=== PATIENT | male | born 1955 | race Caucasian/White ===

== ENCOUNTER 2018-12-02 19:25 | Emergency (ER) | payer MEDICARE, MEDICAID ==
[2008-09-22 20:54] VITALS: BP 123/79
[~2018-12-02 19:25] MED LIST: 00186-0372-20 IH; ADVAIR 250/28 DISKUS IH; ALBUTEROL SULFAT3 M3 IH; ALBUTEROL0.83 MG/ML IH; AMLODIPINE10 MG PO; AQUAPHOR; AQUAPHOR1 OI1 TP; ASPIRIN 81M81 MG/TA2 PO; ASPIRIN E.C. 8181 MG PO; BENEFIBER PO; BUSPAR10 MG PO; CITRUCEL WI2 GM/Dose PO; CLEOCIN; DIFLUCAN PO; DILANTIN100 MG PO; DUONEB 3 MG/3 ML3 ML IH; FLONASE NASAL S16 GM NS; GEODON 20 MG20 MG PO; IPRATROPIUM BROM3 M1 IH; LAMICTAL 100MG100 MG PO; LAMICTAL PO; LAMICTAL150 MG PO; LOPRESSOR 550 MG/TAB PO; LORATADINE10 MG PO; MAXZIDE-25MG TA1 TAB PO; NORCO 325 MG-51 TAB PO; NORVASC 5MG5 MG/TAB PO; PEPCID 20MG TAB20 MG PO; PEPCID40 MG PO; PREDNISONE1 MG PO; PREDNISONE20 MG PO; PROAIR HFA0.09 MG/AC IH; RISPERDAL 0.20.25 MG PO; RISPERDAL4 MG PO; RT SPIRIVA18 MCG IH; SINGULAIR10 MG PO; SPECTAZOLE TP; SYMBICORT1 AE3 IH; TOPROL XL50 MG PO; TRIAMCINOLONE A15 GM TP; UNABLE; UNIPHYL; UNIPHYL600 MG PO; VALTREX1 GM PO; VICKS VAPOR RUB; VICKS VAPORUB 41 OIN TP; XALATAN 2.5 ML2.5 ML OU; XALATAN EYE DROPS OU; ZITHROMAX Z PA250 MG
[2018-12-02 19:34] VITALS: TEMP 97.4
[2018-12-02 20:50] LABS: BASO % 0.2 % (0.0-2.0); EOS # 0.1 (0.0-0.7); EOS % 0.3 % (0-4.0); GRAN # 15.6 (1.4-6.5); GRAN % 86.8 % (42.2-75.2); HEMATOCRIT 39.7 % (42.0-52.0); HEMOGLOBIN 12.7 g/dl (13.5-18.0); LYMPH # 0.8 (1.2-3.4); LYMPH % 4.4 % (20.0-51.0); MEAN CELL VOLUME 88 fl (80.0-100.0); MEAN CORPUSCULAR HEMOGLOBIN 28 pg (27.0-31.0); MEAN CORPUSCULAR HGB CONC 32 g/dl (33.0-37.0); MEAN PLATELET VOLUME 10.6 fl (7.4-10.4); MONO # 1.4 (0.1-0.6); MONO % 7.6 % (1.7-9.3); PLATELET COUNT 301 K/mm3 (130-400)
[2018-12-02 20:57] LABS: PROTHROMBIN TIME 11.5 SECONDS (9.7-12.8)
[2018-12-02 21:02] LABS: ALBUMIN 3.5 gm/dL (3.5-5.0); BILIRUBIN,TOTAL 0.3 mg/dL (0.0-1.0); CALCIUM 8.8 mg/dL (8.4-10.2); CREATININE, serum 1.2 (0.66-1.25); POTASSIUM 4.1 mmol/L (3.4-5.0); TOTAL PROTEIN 6.6 gm/dL (6.4-8.2)
[2018-12-02 22:03] LABS: COLLECTION METHOD CLEAN CATCH
[2018-12-02 22:15] LABS: HYALINE CAST >12 /lpf; MUCOUS Present /lpf; PH 5 (5-8); SQUAMOUS EPITHELIAL 0-2 /hpf; URINE APPEARANCE Cloudy; URINE BACTERIA None Seen /hpf; URINE BILIRUBIN Negative (NEGATIVE); URINE BLOOD Negative (NEGATIVE); URINE COLOR Yellow; URINE GLUCOSE Negative (NEGATIVE); URINE KETONE Negative (NEGATIVE); URINE LEUKOCYTE ESTERASE Negative (NEGATIVE); URINE NITRATE Negative (NEGATIVE); URINE PROTEIN(semi-quant) 2+ (NEGATIVE)
[2018-12-02 22:40] VITALS: BP 118/69; PULSE 92
== END 2018-12-02 22:42 | disposition home or self-care (01) ==
LOC: COL.ER 19:25
PROVIDERS: Family Medicine
DX: S70.01XA Contusion of right hip, initial encounter (principal); Z87.820 Personal history of traumatic brain injury; W19.XXXA Unspecified fall, initial encounter